=== PATIENT | female | born 1960 | race Caucasian/White ===

== ENCOUNTER → 2023-10-27 06:27 | Day surgery (SDC) | payer OTHER, SELFPAY ==
[2023-10-27 07:20] LABS: Glucose - Point of Care 156 mg/dl (70-99)
== END ==
LOC: GI 06:27
PROVIDERS: ATTENDING PHYSICIAN Internal Medicine Gastroenterology; FAMILY PHYSICIAN Family Medicine
DX: Z12.11 Encounter for screening for malignant neoplasm of colon (principal); K64.8 Other hemorrhoids; D12.3 Benign neoplasm of transverse colon; K63.5 Polyp of colon
CPT/HCPCS: 45385; 45381; 45380; 88305; 82962